=== PATIENT | male | born 1980 | race Caucasian/White ===

== ENCOUNTER 2017-05-15 20:46 | Emergency (ER) | payer OTHER ==
--- NOTE | 2017-05-15 20:51 | UC ---
Bite Injury/Animal HPI - History of Current Complaint Stated Complaint: TICK Time Seen by Provider: 05/15/17 20:51 - Allergies/Home Medications Allergies/Adverse Reactions: Allergies Allergy/AdvReac Type Severity Reaction Status Date / Time No Known Allergies Allergy Verified 08/27/15 10:58 PMH/Surg Hx/FS Hx/Imm Hx - Surgical History Surgical History: Yes Surgery Procedure, Year, and Place: LEFT FOOT. HERNIA REPAIR - Social History Alcohol Use: None Substance Use Type: None Smoking Status (MU): Heavy Every Day Tobacco Smoker Type: Cigarettes, Smokeless Tobacco Amount Used/How Often: 1/2 PPD Length of Time of Smoking/Using Tobacco: 2-3 YRS Discharge - Discharge Plan Condition: Stable Disposition: HOME
--- NOTE | 2017-05-15 21:10 | UC ---
Skin Complaint HPI - HPI Summary HPI Summary: 37 y/o male presents to the urgent care c/o of tick bite on his RT axilla he noticed today. Pt states he is everyday working out in the [employer]. This year he has removed 8 ticks form his body. He has never taken prophylactic treatment for Lyme disease. Pt has been having with mild COOK with body aches for the past 10 days. Pt denies fever, rash, SOB, chest pain, N/V/D, abdominal pain. - History of Current Complaint Chief Complaint: UCSkin Time Seen by Provider: 05/15/17 20:51 Stated Complaint: TICK Hx Obtained From: Patient Onset/Duration: Sudden Onset, Lasting Days - unknown, noticed tick bite today Skin Exposure Onset/Duration: Hours Ago Timing: Constant Onset Severity: Mild Current Severity: Mild Pain Intensity: 0 Pain Scale Used: 0-10 Numeric Location: Discrete - RT axilla tick bite Character: Redness Aggravating Factor(s): Touch Alleviating Factor(s): Nothing Associated Signs & Symptoms: Positive: Negative Related History: Possible Reaction to: Insect - Allergy/Home Medications Allergies/Adverse Reactions: Allergies Allergy/AdvReac Type Severity Reaction Status Date / Time No Known Allergies Allergy Verified 05/15/17 20:58 Home Medications: Home Medications Amphetamine/Dextroamph ER(NF) [Adderal XR (NF)] 20 mg PO BEDTIME 05/15/17 [ History Confirmed 05/15/17] Gabapentin CAP(*) [Neurontin 300 CAP(*)] 300 mg PO BID 05/15/17 [History Confirmed 05/15/17] hydrOXYzine HCL TAB* [Atarax 25 MG TAB*] 50 mg PO BEDTIME PRN 05/15/17 [History Confirmed 05/15/17] Review of Systems Constitutional: Negative Skin: Other - RT axilla tick bite Eyes: Negative ENT: Negative Respiratory: Negative Cardiovascular: Negative Gastrointestinal: Negative Genitourinary: Negative Motor: Negative Neurovascular: Negative Musculoskeletal: Arthralgia Neurological: Headache - mild Psychological: Negative Is Patient Immunocompromised?: No All Other Systems Reviewed And Are Negative: Yes PMH/Surg Hx/FS Hx/Imm Hx Previously Healthy: Yes Other Neurological History: Degenerative disc disease - Surgical History Surgical History: Yes Surgery Procedure, Year, and Place: LEFT FOOT. HERNIA REPAIR - Family History Known Family History: Positive: Hypertension - Social History Occupation: Employed Full-time Lives: With Family Alcohol Use: Occasionally Substance Use Type: None Smoking Status (MU): Heavy Every Day Tobacco Smoker Type: Cigarettes, Smokeless Tobacco Amount Used/How Often: 1/2 PPD Length of Time of Smoking/Using Tobacco: 25 YRS Have You Smoked in the Last Year: Yes Physical Exam Triage Information Reviewed: Yes Vital Signs: Initial Vital Signs Temp 97.4 F 05/15/17 20:52 Pulse 101 05/15/17 20:52 Resp 14 05/15/17 20:52 BP 110/86 05/15/17 20:52 Pulse Ox 100 05/15/17 20:52 - Additional Comments Vital Signs Reviewed: Yes Eyes: Positive: Conjunctiva Clear - PERRLA, EOMI ENT: Positive: Normal ENT inspection, Hearing grossly normal, Pharynx normal, TMs normal Neck: Positive: Supple, Nontender, No Lymphadenopathy Respiratory: Positive: Chest nontender, Lungs clear, Normal breath sounds Cardiovascular: Positive: RRR, No Murmur, Pulses Normal Abdomen Description: Positive: Nontender, No Organomegaly, Soft. Negative: CVA Tenderness (R), CVA Tenderness (L) Bowel Sounds: Positive: Present Musculoskeletal: Positive: Strength Intact, ROM Intact, No Edema Neurological Exam: Normal Psychological Exam: Normal Skin: Positive: rashes - RT axilla with live tick. Engorged Tick removed with twister. tick bite with surrounding erythema, non tender to palpation. no swelling or drainage observed. Course/Dx - Course Course Of Treatment: 37 y/o male presents to the urgent care c/o of tick bite on his RT axilla he noticed today. Pt states he is everyday working out in the [employer]. This year he has removed 8 ticks form his body. He has never taken prophylactic treatment for Lyme disease. Pt has been having with mild COOK with body aches for the past 10 days. Pt denies fever, rash, SOB, chest pain, N/V/D, abdominal pain. HX obtained. Tick was removed from RT axilla using twister technique. Tick engorde and still alive. After tick removal and the skin cleansing. Lyme Serology ordered sinc PT with multiple Tick bite in the past. First dose of Doxycycline PO given to the patient since pharmacy close. Pt tolerated well medication. Pt advised to observe the area for the development or Erythema Migrans for upto 30 days following exposure. Advised that there is to possibility the serology returns negative the first 2 weeks of exposure. However strongly advised to f/u with Dr Graff or PCP for further management.Rx sent to pharmacy and advised to take full course of ABX despite Serology result. Pt understood and agreed with plan of care. Advised if he develops fever or erythema Migrans to return to the clinic or PCP for further treatment .Pt understood and agreed with plan of care. - Differential Diagnoses - Skin Complaint Differential Diagnoses: Abscess, Cellulitis, Contact Dermatitis, Local Allergic Reaction, Tick Born Illness, Urticaria, Other - insect bite - Diagnoses Provider Diagnoses: 1-Multiple Tick bites r/o Lyme disease. 2-Headache Discharge - Discharge Plan Condition: Stable Disposition: HOME Prescriptions: DOXYcycline CAP(*) [DOXYcycline 100MG CAP(*)] 100 mg PO BID #41 cap Patient Education Materials: Lyme Disease (ED), Tick Bite (ED) Referrals: Dajuan MEJIA,Jose J Logan [Medical Doctor] - 2 Weeks Taj BLUM,Patti [Nurse Practitioner] - 2 Weeks Additional Instructions: 1- Please take full course of antibiotic to avoid resistance and despite the Lyme serology results. 2- Lyme Serology and blood work still pending. You will be notified of results 3- F/u with DR Graff or a PCP in 1 week for further management in Lyme Disease 4- TAke Ibuprofen PO q6-8hr OTC to alleviate headache and body aches
[2017-05-15 21:15] VITALS: BP 110/86
[2017-05-15] MEDS: DOXYcycline CAP(*) 100 MG PO ONE (21:33)
== END 2017-05-15 21:40 | disposition home or self-care (01) ==
LOC: UCCORT 20:46
DX: S40.861A Insect bite (nonvenomous) of right upper arm, initial encounter (principal); W57.XXXA Bitten or stung by nonvenomous insect and other nonvenomous arthropods, initial encounter; Y93.89 Activity, other specified; Y92.821 Forest as the place of occurrence of the external cause; R51 Headache; F17.210 Nicotine dependence, cigarettes, uncomplicated
CPT/HCPCS: 86618; 99212; A9270-GY; G0463

== ENCOUNTER 2018-03-01 18:21 | Emergency (ER) | payer OTHER ==
[2018-03-01 18:51] VITALS: BP 113/73
--- NOTE | 2018-03-01 19:17 | ED ---
Throat Pain/Nasal Congestion - HPI Summary HPI Summary: 37 yr old male with the complaint of right ear pain. Onset 230 am with some bloody drainage on his pillow. He has a headache, but states this headache has been present for much more than a month and is due to chronic degenerative cervical spine disease. No new issue with headache. He came today due to the right ear with the drainage. No fever, chills. No change in vision, speech, hearing, swallowing. No focal weakness, no numbness. No other complaints. THe patient states he has old C2, C3 fractures as cause of his headaches. He states he has had MRI studies and has been worked up for this over the past couple of months. Nothing new today regarding headache. - History of Current Complaint Chief Complaint: UCEar Time Seen by Provider: 03/01/18 19:02 - Allergies/Home Medications Allergies/Adverse Reactions: Allergies Allergy/AdvReac Type Severity Reaction Status Date / Time No Known Allergies Allergy Verified 03/01/18 18:42 Home Medications: Home Medications Levorphanol Tartrate 2 mg PO SEE INSTRUCTIONS 03/01/18 [History Confirmed ] PMH/Surg Hx/FS Hx/Imm Hx Endocrine/Hematology History: Denies: Hx Diabetes Cardiovascular History: Denies: Hx Hypertension, Hx Pacemaker/ICD Respiratory History: Denies: Hx Asthma History: Denies: Hx Renal Disease Sensory History: Denies: Hx Hearing Aid Psychiatric History: Denies: Hx Panic Disorder - Surgical History Surgery Procedure, Year, and Place: LEFT FOOT. HERNIA REPAIR Infectious Disease History: No Infectious Disease History: Denies: Traveled Outside the [place] in Last 30 Days - Family History Known Family History: Positive: Hypertension - Social History Alcohol Use: Occasionally Substance Use Type: Reports: None Smoking Status (MU): Heavy Every Day Tobacco Smoker Type: Cigarettes, Smokeless Tobacco Amount Used/How Often: 1/2 PPD Length of Time of Smoking/Using Tobacco: 25 YRS Have You Smoked in the Last Year: Yes Review of Systems Constitutional: Negative Positive: Ear Ache Positive: Headache All Other Systems Reviewed And Are Negative: Yes Physical Exam Triage Information Reviewed: Yes Vital Signs On Initial Exam: Initial Vitals Temp Pulse Resp BP Pulse Ox 100 F 91 16 113/73 96 03/01/18 18:45 03/01/18 18:45 03/01/18 18:45 03/01/18 18:45 03/01/18 18:45 Vital Signs Reviewed: Yes Appearance: Positive: Well-Appearing, No Pain Distress Skin: Positive: Warm, Skin Color Reflects Adequate Perfusion Head/Face: Positive: Normal Head/Face Inspection Eyes: Positive: EOMI, [place] ENT: Positive: Normal ENT inspection, Pharynx normal, TM dull - right, TM red - right. Negative: Nasal congestion Neck: Positive: Supple, Nontender Respiratory/Lung Sounds: Positive: Clear to Auscultation, Breath Sounds Present Cardiovascular: Positive: RRR. Negative: Murmur Abdomen Description: Positive: Nontender Musculoskeletal: Positive: Strength/ROM Intact Neurological: Positive: Sensory/Motor Intact, Alert, Oriented to Person Place, Time, CN Intact II-III Psychiatric: Positive: Normal - [place] Coma Scale Best Eye Response: 4 - Spontaneous Best Motor Response: 6 - Obeys Commands Best Verbal Response: 5 - Oriented Coma Scale Total: 15 Diagnostics - Vital Signs Vital Signs Temp Pulse Resp BP Pulse Ox 03/01/18 18:45 100 F 91 16 113/73 96 - Laboratory Lab Statement: Any lab studies that have been ordered have been reviewed, and results considered in the medical decision making process. EENT Course/Dx - Course Course Of Treatment: 37 yr old male with right ear pain and drainage. Will Rx with Cefdinir. - Diagnoses Provider Diagnoses: Otitis media Discharge - Sign-Out/Discharge Documenting (check all that apply): Patient Departure - Discharge Plan Condition: Good Disposition: HOME Prescriptions: Cefdinir [Cefdinir 300 MG CAP] 300 mg PO BID #20 capsule Patient Education Materials: Ear Infection (ED) Referrals: Haylie Victor [Primary Care Provider] - 2 Days - Billing Disposition and Condition Condition: GOOD Disposition: Home
== END 2018-03-01 19:26 | disposition home or self-care (01) ==
LOC: UCCORT 18:21
DX: H66.91 Otitis media, unspecified, right ear (principal); F17.210 Nicotine dependence, cigarettes, uncomplicated
CPT/HCPCS: 99212; G0463

== ENCOUNTER 2018-08-19 16:35 | Emergency (ER) | payer OTHER ==
[2018-08-19 16:56] VITALS: BP 120/77
--- NOTE | 2018-08-19 17:15 | UC ---
FLU HPI - HPI Summary HPI Summary: Pt c/o sudden onset of fever, chills, ST, Cough, malaise X 1 week. Pt states his fever was 105. - History of Current Complaint Chief Complaint: UCRespiratory Stated Complaint: FEVER Time Seen by Provider: 08/19/18 17:00 Hx Obtained From: Patient Onset/Duration: Sudden Onset, Lasting Days Severity Currently: Mild Severity Initially: Severe Pain Intensity: 10 Associated Signs & Symptoms: Positive: Fever, Myalgia, Cough, Sore Throat Related Hx: Possible Flu/Infectious Exposure - Risk Factors Influenza Risk Factors: Negative - Allergy/Home Medications Allergies/Adverse Reactions: Allergies Allergy/AdvReac Type Severity Reaction Status Date / Time No Known Allergies Allergy Verified 08/19/18 16:45 Home Medications: Home Medications Dextromethorphn/Acetaminoph/Cp [Vicks Nyquil Cold & Flu N] 1 liq PO PRN [History] Ibuprofen TAB* [Motrin TAB* 400 MG] 800 mg PO Q6H PRN 08/19/18 [History Confirmed 08/19/18] PMH/Surg Hx/FS Hx/Imm Hx Previously Healthy: Yes - Surgical History Surgical History: Yes Surgery Procedure, Year, and Place: LEFT FOOT. HERNIA REPAIR - Family History Known Family History: Positive: Hypertension - Social History Occupation: Employed Full-time Lives: With Family Alcohol Use: Rare Substance Use Type: None Smoking Status (MU): Former Smoker Type: Smokeless Tobacco Amount Used/How Often: 1/2 PPD Length of Time of Smoking/Using Tobacco: 25 YRS Have You Smoked in the Last Year: Yes When Did the Patient Quit Smoking/Using Tobacco: 2017 Review of Systems All Other Systems Reviewed And Are Negative: Yes Constitutional: Positive: Fever, Chills, Fatigue Skin: Positive: Negative Eyes: Positive: Negative ENT: Positive: Sore Throat Respiratory: Positive: Cough Cardiovascular: Positive: Negative Gastrointestinal: Positive: Negative Genitourinary: Positive: Negative Motor: Positive: Negative Neurovascular: Positive: Negative Musculoskeletal: Positive: Myalgia Neurological: Positive: Negative Psychological: Positive: Negative Is Patient Immunocompromised?: No Physical Exam Triage Information Reviewed: Yes Appearance: Ill-Appearing Vital Signs: Initial Vital Signs Temp 98.9 F 08/19/18 16:49 Pulse 104 08/19/18 16:49 Resp 20 08/19/18 16:49 BP 120/77 08/19/18 16:49 Pulse Ox 98 08/19/18 16:49 Vital Signs Reviewed: Yes Eye Exam: Normal ENT Exam: Normal ENT: Positive: Other - tongue pierced Dental Exam: Normal Dental: Positive: Gross Decay/Caries @ Neck exam: Normal Respiratory Exam: Normal Cardiovascular Exam: Normal Musculoskeletal Exam: Normal Neurological Exam: Normal Psychological Exam: Normal Skin Exam: Normal Flu Course/Dx - Course Course Of Treatment: I disucssed with the pt the need to follow upw ith his PCP and if symptoms worsen to seek care at the closest emergency room as soon as possible. Pt verbalized understanding and agreed to pain - Differential Dx/Diagnosis Differential Diagnosis/HQI/PQRI: Influenza Provider Diagnosis: Fever, Viral syndrome Discharge - Sign-Out/Discharge Documenting (check all that apply): Patient Departure All imaging exams completed and their final reports reviewed: No Studies - Discharge Plan Condition: Stable Disposition: HOME Patient Education Materials: Fever in Adults (ED), Viral Syndrome (ED) Referrals: Haylie Victor [Primary Care Provider] - If Needed - Billing Disposition and Condition Condition: STABLE Disposition: Home
[2018-08-19 17:24] LABS: Influenza A Molecular NEGATIVE (Negative); Influenza B Molecular NEGATIVE (Negative)
== END 2018-08-19 17:44 | disposition home or self-care (01) ==
LOC: UCCORT 16:35
DX: R50.9 Fever, unspecified (principal); B34.9 Viral infection, unspecified; Z87.891 Personal history of nicotine dependence
CPT/HCPCS: 87651; 99211; G0463

== ENCOUNTER 2018-08-22 18:44 | Emergency (ER) | payer OTHER ==
[2018-08-22 19:15] VITALS: BP 115/80
[2018-08-22] MEDS ORDERED: HYDROcodone/ACETAMIN 5-325 MG* 1 TAB PO ONE (20:24)
--- NOTE | 2018-08-22 20:24 | UC ---
Hand/Wrist HPI - HPI Summary HPI Summary: 38-year-old male comes to clinic today with a chief complaint of injury of the right hand. He struck his hand while working on his struck on the dorsum at the base of the right third metacarpal. He also struck the distal third metacarpal. He has pain with palpation there is swelling he also has pain with movement of the middle finger. There is no skin break. No loss of range of motion no sensation deficit. Denies any wrist pain. Patient also has complaint of left foot pain. There is a sudden onset 3 days ago when he was ambulating he had sudden pain in the midfoot. He wondered if something had gone through the sole of his shoe but he checked there was no bleeding no evidence of any foreign body. That pain is worse with ambulation and better with rest and elevation. He has had prior injury to that foot when he was 20 years old. - History Of Current Complaint Chief Complaint: UCGeneralIllness Stated Complaint: LT FOOT,RT HAND INJURY Time Seen by Provider: 08/22/18 19:22 Pain Intensity: 8 - Allergies/Home Medications Allergies/Adverse Reactions: Allergies Allergy/AdvReac Type Severity Reaction Status Date / Time No Known Allergies Allergy Verified 08/22/18 19:15 PMH/Surg Hx/FS Hx/Imm Hx Previously Healthy: Yes - Surgical History Surgical History: Yes Surgery Procedure, Year, and Place: LEFT FOOT. HERNIA REPAIR - Family History Known Family History: Positive: Hypertension - Social History Alcohol Use: Rare Substance Use Type: None Smoking Status (MU): Former Smoker Type: Smokeless Tobacco Amount Used/How Often: 1/2 PPD Length of Time of Smoking/Using Tobacco: 25 YRS Have You Smoked in the Last Year: Yes When Did the Patient Quit Smoking/Using Tobacco: 2017 Review of Systems All Other Systems Reviewed And Are Negative: Yes Constitutional: Positive: Negative Skin: Positive: Bruising - RT HAND Eyes: Positive: Negative ENT: Positive: Negative Respiratory: Positive: Negative Cardiovascular: Positive: Negative Gastrointestinal: Positive: Negative Motor: Positive: Negative Neurovascular: Positive: Negative Musculoskeletal: Positive: Other: - SEE HPI Neurological: Positive: Negative Psychological: Positive: Negative Is Patient Immunocompromised?: No Physical Exam Triage Information Reviewed: Yes Appearance: Well-Appearing, Well-Nourished, Pain Distress - MILD WITH ROM RT HAND/LEFT FOOT Vital Signs: Initial Vital Signs Temp 97.8 F 08/22/18 19:12 Pulse 92 08/22/18 19:12 Resp 16 08/22/18 19:12 BP 115/80 08/22/18 19:12 Pulse Ox 100 08/22/18 19:12 Vital Signs Reviewed: Yes Eye Exam: Normal Eyes: Positive: Conjunctiva Clear Neck exam: Normal Neck: Positive: Supple Respiratory: Positive: No respiratory distress Musculoskeletal: Positive: Other: - On the right hand there is swelling and ecchymosis of the dorsum at the base of the third metacarpal. Wrist is nontender with full range of motion. The MCP joint of the third finger is also tender to palpation. Patient has good range of motion of all his fingers although he has quite a bit more pain with flexion extension of the third finger. Capillary refill no sensation deficit. Strength is normal. Neurological: Positive: Alert, Muscle Tone Normal Psychological Exam: Normal Psychological: Positive: Normal Response To Family, Age Appropriate Behavior Skin: Positive: Other - ECCYMOSIS DORSUM OF RT HAND Hand/Wrist Course/Dx - Course Course Of Treatment: I discussed the x-rays with the patient. On the left foot I do not see any fracture or any abnormality. On the right hand on the oblique view there appears to be some irregularity of the base of the third metacarpal however this may be due to bony overlap. This is the site of the greatest pain and swelling. Radiologist reading is pending. I discussed all this with the patient and have reported no fracture on the reading so that if the radiologist sees fracture will need to call the patient and have him follow-up with orthopedics. Otherwise couldn't take eyes anti-inflammatories he was splinted on his hand and is neurovascularly intact after the splinting by the nursing. - Differential Dx/Diagnosis Provider Diagnosis: Contusion of right hand, Pain of left midfoot Discharge - Sign-Out/Discharge Documenting (check all that apply): Patient Departure All imaging exams completed and their final reports reviewed: No - Discharge Plan Condition: Stable Disposition: HOME Patient Education Materials: Foot Sprain (ED), Hand Sprain (ED) Referrals: Haylie Victor [Primary Care Provider] - Jaspal Mccray MD [Medical Doctor] - Additional Instructions: FOLLOW UP WITH ORTHOPEDICS, DR GRIFFIN, IF NOT COMPLETELY IMPROVED. THE RADIOLOGIST READING FOR YOUR X-RAY WILL BE DONE TOMORROW. IF THERE IS ANY CHANGE IN THE X-RAY, WE WILL CALL YOU WITH THE FINAL RESULTS. GET RECHECKED FOR ANY WORSENING OF YOUR CONDITION; CONTINUED OR WORSE PAIN, LOSS OF MOBILITY OR QUESTIONS OR CONCERNS. - Billing Disposition and Condition Condition: STABLE Disposition: Home
--- NOTE | 2018-08-23 09:20 | UC ---
- Progress Note Progress Note: xray reports left foot : IMPRESSION: Normal radiograph of the left foot. right hand : REPORT AND IMPRESSION: #. Negative for fracture or malalignment. Tiny accessory ossicle at the radial margin of the third metacarpal phalangeal joint without concern. Preserved joint spaces. Mild dorsal soft tissue swelling at the level of the metacarpal phalangeal joints. Course/Dx - Diagnoses Provider Diagnoses: Contusion of right hand, Pain of left midfoot Discharge - Sign-Out/Discharge Documenting (check all that apply): Patient Departure All imaging exams completed and their final reports reviewed: Yes - Discharge Plan Condition: Stable Disposition: HOME Patient Education Materials: Foot Sprain (ED), Hand Sprain (ED) Referrals: Jaspal Mccray MD [Medical Doctor] - Haylie Victor [Primary Care Provider] - Additional Instructions: FOLLOW UP WITH ORTHOPEDICS, DR GRIFFIN, IF NOT COMPLETELY IMPROVED. THE RADIOLOGIST READING FOR YOUR X-RAY WILL BE DONE TOMORROW. IF THERE IS ANY CHANGE IN THE X-RAY, WE WILL CALL YOU WITH THE FINAL RESULTS. GET RECHECKED FOR ANY WORSENING OF YOUR CONDITION; CONTINUED OR WORSE PAIN, LOSS OF MOBILITY OR QUESTIONS OR CONCERNS. - Billing Disposition and Condition Condition: STABLE Disposition: Home
== END 2018-08-22 20:38 | disposition home or self-care (01) ==
LOC: UCCORT 18:44
DX: S60.221A Contusion of right hand, initial encounter (principal); W22.8XXA Striking against or struck by other objects, initial encounter; Y92.9 Unspecified place or not applicable; M79.672 Pain in left foot; Z87.891 Personal history of nicotine dependence
CPT/HCPCS: 99214; G0463

== ENCOUNTER 2018-11-08 11:43 | Emergency (ER) | payer OTHER ==
[2018-11-08 12:52] VITALS: BP 114/70
--- NOTE | 2018-11-08 13:03 | UC ---
Respiratory Complaint HPI - HPI Summary HPI Summary: "I have a sore throat. Every time I cough, my left lung hurts." Constant sore throat aggrevated by coughing and "yellow" productive cough that causes left pleuritic pain for one week. No known fever. - History of Current Complaint Chief Complaint: UCRespiratory Stated Complaint: COUGH,SORE THROAT,ACHEY Time Seen by Provider: 11/08/18 12:52 Hx Obtained From: Patient Onset/Duration: Sudden Onset, Lasting Days Timing: Constant Severity Initially: Moderate Severity Currently: Moderate Pain Intensity: 8 Character: Cough: Productive Aggravating Factors: Exertion, Deep Breaths, Recumbent Position Alleviating Factors: Nothing Associated Signs And Symptoms: Positive: Dyspnea, Wheezing, URI, Nasal Congestion - Allergies/Home Medications Allergies/Adverse Reactions: Allergies Allergy/AdvReac Type Severity Reaction Status Date / Time No Known Allergies Allergy Verified 11/08/18 12:47 PMH/Surg Hx/FS Hx/Imm Hx Previously Healthy: Yes - Surgical History Surgical History: Yes Surgery Procedure, Year, and Place: LEFT FOOT. HERNIA REPAIR - Family History Known Family History: Positive: Hypertension - Social History Alcohol Use: Occasionally Substance Use Type: None Smoking Status (MU): Heavy Every Day Tobacco Smoker Type: Smokeless Tobacco Amount Used/How Often: <1 can per day Length of Time of Smoking/Using Tobacco: Chew Since Age 36; ~2 PPD x 20 Years Have You Smoked in the Last Year: Yes When Did the Patient Quit Smoking/Using Tobacco: 2017 (Cigarettes) Review of Systems All Other Systems Reviewed And Are Negative: Yes Constitutional: Positive: Chills, Fatigue Skin: Positive: Negative Eyes: Positive: Negative ENT: Positive: Negative Respiratory: Positive: Shortness Of Breath, Cough Cardiovascular: Positive: Negative Gastrointestinal: Positive: Negative Genitourinary: Positive: Negative Motor: Positive: Negative Neurovascular: Positive: Negative Musculoskeletal: Positive: Negative Neurological: Positive: Negative Psychological: Positive: Negative Is Patient Immunocompromised?: No Physical Exam Triage Information Reviewed: Yes Appearance: Well-Nourished, Ill-Appearing, Pain Distress Vital Signs: Initial Vital Signs Temp 97.2 F 11/08/18 12:45 Pulse 92 11/08/18 12:45 Resp 18 11/08/18 12:45 BP 114/70 11/08/18 12:45 Pulse Ox 100 11/08/18 12:45 Vital Signs Reviewed: Yes Eye Exam: Normal ENT: Positive: Pharyngeal erythema - with PND, Nasal congestion, Nasal drainage Dental Exam: Normal Neck exam: Normal Respiratory Exam: Normal Respiratory: Positive: Chest non-tender, Lungs clear, Normal breath sounds Cardiovascular Exam: Normal Cardiovascular: Positive: RRR, No Murmur, Pulses Normal Bowel Sounds: Positive: Present Musculoskeletal Exam: Normal Neurological Exam: Normal Psychological Exam: Normal Skin Exam: Normal Respiratory Course/Dx - Course Course Of Treatment: history obtained, exam performed ,meds reviewed, xray obtained, ibuprofen given - Differential Dx/Diagnosis Differential Diagnosis/HQI/PQRI: Asthma, Bronchitis, Influenza, Laryngitis, Sinusitis Provider Diagnosis: Bronchitis, Sinusitis Discharge - Sign-Out/Discharge Documenting (check all that apply): Patient Departure All imaging exams completed and their final reports reviewed: Yes - Discharge Plan Condition: Stable Disposition: HOME Prescriptions: Amoxicillin PO (*) [Amoxicillin 875 MG (*)] 875 mg PO BID #20 tab predniSONE [Prednisone 20 MG TAB] 40 mg PO DAILY #14 tablet Patient Education Materials: Sinusitis (ED), Acute Bronchitis (ED) Referrals: Haylie Victor [Primary Care Provider] - Additional Instructions: 1. take the medication as prescribed. 2. Your chest xrya was negative for pneumonia 3. Rest, increase fluids and if not improving in the next 2-3 days, follow up. - Billing Disposition and Condition Condition: STABLE Disposition: Home
[2018-11-08] MEDS ORDERED: Ibuprofen TAB* 600 MG PO ONE (13:04)
== END 2018-11-08 13:30 | disposition home or self-care (01) ==
LOC: UCCORT 11:43
DX: J40 Bronchitis, not specified as acute or chronic (principal); J32.9 Chronic sinusitis, unspecified; F17.220 Nicotine dependence, chewing tobacco, uncomplicated
CPT/HCPCS: 71046; 99212; A9270-GY; G0463

== ENCOUNTER 2019-01-14 21:12 | Emergency (ER) | payer SELFPAY ==
[2019-01-14 21:32] VITALS: BP 111/74
[2019-01-14] MEDS ORDERED: HYDROcodone/ACETAMIN 5-325 MG* 1 TAB PO ONE (21:50)
[2019-01-14] MEDS ORDERED: Mupirocin 2% OINT* TUBE TOPICAL ONE (21:50)
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
== END 2019-01-14 22:15 | disposition home or self-care (01) ==
LOC: UCCORT 21:12
DX: T23.261A Burn of second degree of back of right hand, initial encounter (principal); T31.0 Burns involving less than 10% of body surface; X08.8XXA Exposure to other specified smoke, fire and flames, initial encounter; Y92.9 Unspecified place or not applicable; Z87.891 Personal history of nicotine dependence
CPT/HCPCS: 16000; 16020; 99213; G0463